=== PATIENT | female | born 1990 | race African-American/Black ===

== ENCOUNTER 2016-12-31 19:29 | Emergency (ER) | payer OTHER | END 2016-12-31 22:04 | disposition home or self-care (01) | LOC: FER 19:29 | DX: R51 Headache (principal); Z88.0 Allergy status to penicillin; Z82.49 Family history of ischemic heart disease and other diseases of the circulatory system | CPT/HCPCS: 99283 ==

== ENCOUNTER 2017-03-19 18:48 | Emergency (ER) | payer OTHER | END 2017-03-19 18:56 | disposition left against medical advice (07) | LOC: FER 18:48 | DX: T19.2XXA Foreign body in vulva and vagina, initial encounter (principal); Z53.8 Procedure and treatment not carried out for other reasons ==

== ENCOUNTER 2017-07-22 17:15 | Emergency (ER) | payer OTHER ==
[2017-07-22 18:54] LABS: BILIRUBIN 1+ mg/dL (NEGATIVE); BLOOD NEGATIVE Ery/uL (NEGATIVE); COLOR YELLOW (YELLOW); GLUCOSE (U) NORMAL (NORMAL); KETONE (U) 1+ (SMALL) mg/dL (NEGATIVE); LEUKOCYTES NEGATIVE Leu/uL (NEGATIVE); NITRITE NEGATIVE (NEGATIVE); PROTEIN 1+ mg/dL (NEGATIVE); SPECIFIC GRAVITY 1.025 (1.001-1.030)
[2017-07-22 18:59] LABS: CLARITY SLIGHTLY HAZY (CLEAR); URINARY RBC RARE; URINARY WBC RARE
[2017-07-22 19:00] LABS: BACTERIA TRACE; MUCOUS MODERATE
[2017-07-22 19:09] LABS: CREATININE 0.8 mg/dL (0.5-1.0); POTASSIUM 3.9 mmol/L (3.5-5.1)
[2017-07-22 19:12] LABS: BASOPHIL 0.3 % (0-2); EOSINOPHIL 0.3 % (0-5); HCT 39.5 % (37.0-47.0); HGB 13.2 g/dl (12.5-16.0); LYMPHOCYTE 19.8 % (15-48); MCH 29.1 pg (25.0-31.0); MCHC 33.4 g/dL (32.0-36.0); MPV 9.6 fL (6.0-9.5); NEUTROPHIL 75.6 % (41-80); PLT 424 K/uL (150-400); RBC 4.54 M/uL (4.20-5.40); RDW 12.4 % (11.5-14.0); WBC 9.8 K/uL (4.0-10.5)
== END 2017-07-22 20:17 | disposition home or self-care (01) ==
LOC: FER 17:15
PROVIDERS: Emergency Medicine
DX: E86.0 Dehydration (principal); R55 Syncope and collapse; Z88.0 Allergy status to penicillin
CPT/HCPCS: 36415; 80048; 81001; 85025; 93005